=== PATIENT | female | born 1960 | race Caucasian/White ===

== ENCOUNTER → 2020-08-27 | Outpatient (REF) ==
[~2020-08-27] MED LIST: NORCO 325 MG-7.1 TAB PO
== END ==
LOC: COL.LAB 12:57
DX: Z20.822 Contact with and (suspected) exposure to COVID-19 (principal)

== ENCOUNTER 2024-01-27 21:51 | Emergency (ER) | payer SELFPAY ==
[~2024-01-27] VITALS: Ht 157.5 cm; Wt 54.5 kg
[~2024-01-27 21:51] MED LIST changes: +ADDERALL20 MG PO; +ARAVA 20MG TABL20 MG PO; +EFFEXOR 75M75 MG/TAB PO; +EFFEXOR XR37.5 MG/CA PO; +EFFEXOR XR75 MG/CAP PO; +FLEXERIL 1010 MG/TAB PO; +IBU800 M1 PO; +LYRICA 75MG CAP75 MG PO; +NORVASC 5MG5 MG/TAB PO; +PERCOCET 325 MG1 TA2 PO; +PREDNISONE10 MG PO; +PREDNISONE20 MG PO; +PROAIR HFA0.09 MG/AC IH; +TYLENOL 500MG500 MG PO; +ZOFRAN 4MG T4 MG/TAB PO
[2024-01-27 21:52] VITALS: TEMP 97.8
[2024-01-27] MEDS ORDERED: NS 1,000 ML IV ONE (22:15)
[2024-01-27 22:42] LABS: BASO # 0.1 K/mm3 (0.0-0.2); BASO % 1.2 % (0.0-2.0); EOS % 0.1 % (0.0-4.0); GRAN % 75.3 % (42.2-75.2); HEMOGLOBIN 10.3 g/dl (12.5-16.0); LYMPH # 1.5 K/mm3 (1.2-3.4); LYMPH % 18.5 % (20.0-51.0); MEAN CELL VOLUME 87 fl (80.0-100.0); MEAN CORPUSCULAR HEMOGLOBIN 29 pg (27-31); MEAN CORPUSCULAR HGB CONC 33 g/dl (33.0-37.0); MEAN PLATELET VOLUME 10.6 fl (7.4-10.4); MONO # 0.3 K/mm3 (0.1-0.6); MONO % 3.9 % (1.7-9.3); PLATELET COUNT 490 K/mm3 (130-400); RED BLOOD COUNT 3.62 M/mm3 (4.10-5.30); REDCELL DISTRIBUTION WIDTH-CV 14.7 % (11.5-14.5)
[2024-01-27 22:43] LABS: HEMATOCRIT 31.5 % (37.0-47.0)
[2024-01-27 23:03] LABS: ALBUMIN 3.2 g/dL (3.4-4.8); BILIRUBIN,TOTAL 0.3 mg/dL (0.2-1.2); CALCIUM 9.5 mg/dL (8.4-10.2); CREATININE, serum 0.77 mg/dL (0.57-1.11); MAGNESIUM 1.6 mg/dL (1.6-2.6); POTASSIUM 3.7 mEq/L (3.5-4.5); TOTAL PROTEIN 7.4 g/dl (6.2-8.1)
[2024-01-27 23:24] LABS: COLLECTION METHOD CLEAN CATCH
[2024-01-27 23:28] VITALS: BP 120/81; PULSE 88
[2024-01-27 23:28] LABS: PH 5.5 (5.0-8.5); URINE APPEARANCE CLEAR (CLEAR/HAZY); URINE BLOOD NEGATIVE (NEGATIVE); URINE COLOR YELLOW (YELLOW); URINE GLUCOSE NEGATIVE (NEGATIVE); URINE KETONE NEGATIVE (NEGATIVE); URINE NITRATE NEGATIVE (NEGATIVE); URINE PROTEIN(semi-quant) NEGATIVE (NEGATIVE); URINE UROBILINOGEN 0.2 E.U/dL (0.2-1.0)
== END 2024-01-27 23:28 | disposition home or self-care (01) ==
LOC: COL.ER 21:51
PROVIDERS: Emergency Medicine
DX: L03.113 Cellulitis of right upper limb (principal); E86.0 Dehydration
CPT/HCPCS: J7030